=== PATIENT | male | born 1985 | race Caucasian/White ===

== ENCOUNTER 2017-03-10 20:02 | Inpatient (IN) | payer OTHER ==
[~2017-03-10] VITALS: Ht 180.3 cm; Wt 104.3 kg
[2017-03-10 20:22] LABS: EOSINOPHIL (%) 2.7 % (0-5); EOSINOPHIL COUNT 0.4 K/uL (0-0.3); HEMATOCRIT 40.8 % (38.0-50.0); IMMATURE GRANULOCYTE (%) 0.4 % (0.0-0.7); IMMATURE GRANULOCYTE COUNT 0.1 K/uL; INSTRUMENT ABS NEUTROPHIL CT 9.7 K/uL; LYMPHOCYTE COUNT 2.8 K/uL (1.0-2.8); MCH 32.4 PG (29.0-34.0); MCV 89.9 FL (86-99); MEAN PLAT.VOLUME 9.4 uM^3 (9.0-12.4); MONOCYTE (%) 6.4 % (3-12); MONOCYTE COUNT 0.9 K/uL (0-0.8); NEUTROPHIL (%) 70.2 % (45-76); NEUTROPHIL COUNT 9.7 K/uL (1.8-6.4); PLATELET COUNT 243 K/uL (156-360); RBC DIS.WIDTH-CV 12.2 % (11.8-14.6); RBC DIS.WIDTH-SD 39.8 % (39-53); RED BLOOD COUNT 4.54 M/uL (4.00-5.50); WHITE BLOOD COUNT 13.8 K/uL (4.1-10.2)
[2017-03-10 20:30] LABS: AMYLASE 49 IU/L (1-118); CHLORIDE 107 mEq/L (99-109); POTASSIUM 4.2 mEq/L (3.7-5.4); SODIUM 140 mEq/L (136-147)
[2017-03-10 20:32] LABS: GLUCOSE 112 mg/dL (70-99)
[2017-03-10 20:34] LABS: ANION GAP 10 MEQ/L (2-14)
[2017-03-10 20:35] LABS: SERUM ETHYL ALCOHOL < 10 mg/dL
[2017-03-10 20:37] LABS: UREA NITROGEN (BUN) 13 mg/dL (9-23)
[2017-03-10 20:38] LABS: GFR ESTIMATE (CALCULATED) > 59 mL/min/
[2017-03-10 20:39] LABS: LIPASE 26 U/L (1.0-51.0)
[2017-03-10] MEDS ORDERED: MOTRIN800 MG PO (21:40)
[2017-03-10] MEDS ORDERED: TYLENOL650 MG PR (21:40)
[2017-03-10] MEDS ORDERED: TYLENOL REGULA325 MG PO (21:44)
[2017-03-10 22:30] LABS: AMPHETAMINE NEGATIVE (500 ng/mL); BARBITURATES NEGATIVE (200 ng/mL); BENZODIAZEPINES NEGATIVE (150 ng/mL); COCAINE NEGATIVE (150 ng/mL); INTERNAL CONTROLS VALID? YES; METHADONE NEGATIVE (200 ng/mL); METHAMPHETAMINE NEGATIVE (500 ng/mL); OPIATES (MORPHINE) PRESUMPTIVE POSITIVE (100 ng/mL); OXYCODONE NEGATIVE (100 ng/mL); PHENCYCLIDINE NEGATIVE (25 ng/mL); PROPOXYPHENE NEGATIVE (300 ng/mL); THC CANNABINOIDS NEGATIVE (50 ng/mL); TRICYCLIC ANTIDEPRESSANTS NEGATIVE (300 ng/mL)
[2017-03-10 22:31] LABS: ADD MEDTOX COMMENT Y
[2017-03-10 22:47] LABS: ADD MIUA? NO; BILIRUBIN NEGATIVE; BLOOD NEGATIVE; COLOR STRAW ((YELLOW)); GLUCOSE (STRIP) NEGATIVE; KETONES NEGATIVE; LEUKOCYTES NEGATIVE; NITRITE NEGATIVE; PROTEIN (STRIP) NEGATIVE; SPECIFIC GRAVITY 1.034 (1.000-1.030); UCUL ADDED? NO; UROBILINOGEN 0.2 MG/DL (0.2-1.0)
[2017-03-11 14:03] VITALS: BP 133/85
[2017-03-11 15:50] VITALS: BP 127/82
[2017-03-12 07:45] VITALS: BP 137/80
[2017-03-12 15:55] VITALS: BP 139/81
[2017-03-13 09:22] VITALS: BP 133/84
[2017-03-13 15:34] VITALS: BP 129/78
[2017-03-14 08:09] VITALS: BP 130/77
[2017-03-14 15:59] VITALS: BP 142/80
[2017-03-15 08:00] VITALS: BP 141/92
[2017-03-15] MEDS ORDERED: TRIPLE ANTIB28.35 GM TP (08:58)
== END 2017-03-15 14:29 | disposition home or self-care (01) | DRG 882 ==
LOC: TRA 20:02 → EDOF 03-11 12:43 → 1WEST 03-11 12:43 → ENRESERV 03-11 14:31 → 1WEST 03-15 14:29
PROVIDERS: Emergency Medicine
PROC: 0HQ1XZZ Repair Face Skin, External Approach (ICD-10-PCS; principal; 2017-03-10)
DX: F43.25 Adjustment disorder with mixed disturbance of emotions and conduct (principal); R45.851 Suicidal ideations; S01.81XA Laceration without foreign body of other part of head, initial encounter; S02.40DA Maxillary fracture, left side, initial encounter for closed fracture; S50.12XA Contusion of left forearm, initial encounter; S60.512A Abrasion of left hand, initial encounter; V89.2XXA Person injured in unspecified motor-vehicle accident, traffic, initial encounter; Y92.410 Unspecified street and highway as the place of occurrence of the external cause; Z87.891 Personal history of nicotine dependence
CPT/HCPCS: 70450; 70486; 71260; 72125; 72129; 72132; 73030; 73090; 73552; 74177; 80048; 81003; 82150; 83690; 84999; 85025; 86850; 86900; 86901; 90837; 97150 GO; 97165 GO; 99281; 99285; G0480; J2270; Q0177